=== PATIENT | male | born 1960 | race Two or more races ===

== ENCOUNTER 2022-03-14 09:22 | Outpatient (CLI) | payer OTHER ==
[~2022-03-14 09:22] MED LIST: NABUMETONE500 MG PO; PERCOCET 5-3251 EACH PO
== END 2022-03-14 09:23 | disposition home or self-care (01) ==
LOC: RAD 09:22
PROVIDERS: ATTEND Physical Medicine & Rehabilitation
DX: M77.11 Lateral epicondylitis, right elbow (principal)